=== PATIENT | male | born 1980 | race Caucasian/White ===

== ENCOUNTER 2017-02-20 07:49 | Observation (INO) | payer OTHER ==
[~2017-02-20] VITALS: Ht 177.8 cm; Wt 75.0 kg
[2017-02-20 09:19] LABS: HEMATOCRIT 45.3 % (39.2-51.8); HEMOGLOBIN 15.2 g/dL (13.7-18.0); WHITE BLOOD COUNT 12.2 x10^3/uL (3.4-10)
[2017-02-20 09:31] LABS: BLOOD UREA NITROGEN 10 mg/dL (7-18)
[2017-02-20 09:35] LABS: ACETAMINOPHEN < 2 mcg/mL (10-30)
[2017-02-20 13:06] LABS: DAU SCREEN DISCLAIMER
[2017-02-20] MEDS ORDERED: ARIP5TAB13 PO (16:51)
[2017-02-20] MEDS ORDERED: FLUO10CA13 PO (16:51)
[2017-02-20] MEDS ORDERED: ALPR-475 PO (16:51)
[2017-02-20] MEDS ORDERED: ONDANSETRON ODT 4 MG PO PRN (17:30)
[2017-02-20] MEDS ORDERED: ACETAMINOPHEN 325 MG TABLET PO PRN (17:30)
[2017-02-20 21:39] VITALS: BP 124/86
[2017-02-21 08:05] VITALS: BP 123/85
[2017-02-21] MEDS: NICOTINE 14MG/24 HR PATCH.TD24 TD SCH (09:21)
[2017-02-21] MEDS: LORazepam 1MG TABLET PO PRN ×2 (10:12→19:32)
[2017-02-21 19:32] VITALS: BP 115/73
[2017-02-22] MEDS: NICOTINE 14MG/24 HR PATCH.TD24 TD SCH ×2 (07:38→12:52)
[2017-02-22 07:42] VITALS: BP 102/66
[2017-02-22] MEDS: LORazepam 1MG TABLET PO PRN ×2 (12:50→18:26)
[2017-02-22 19:37] VITALS: BP 109/69
[2017-02-22] MEDS ORDERED: TRAZODONE 50MG TABLET PO SCH (21:00)
[2017-02-23 08:22] VITALS: BP 115/75
[2017-02-23] MEDS: NICOTINE 14MG/24 HR PATCH.TD24 TD SCH (08:57)
[2017-02-23] MEDS: LORazepam 1MG TABLET PO PRN ×2 (11:14→13:32)
== END 2017-02-23 16:14 | disposition home or self-care (01) ==
LOC: ED 09:32 → INTOOBSV 16:45 → EDIP 16:45 → 3E 21:35
PROVIDERS: ADMIT Internal Medicine; ATTEND Internal Medicine
DX: R45.851 Suicidal ideations (principal); D72.829 Elevated white blood cell count, unspecified; D75.89 Other specified diseases of blood and blood-forming organs; F14.10 Cocaine abuse, uncomplicated; F17.210 Nicotine dependence, cigarettes, uncomplicated; F31.9 Bipolar disorder, unspecified; F41.1 Generalized anxiety disorder; F43.10 Post-traumatic stress disorder, unspecified; Z59.0 Homelessness; Z91.14 Patient's other noncompliance with medication regimen
CPT/HCPCS: 36415; 80048; 80307; 80329; 82040; 85025; 99285; G0378; G0479; G0480